=== PATIENT | male | born 1995 | race Caucasian/White ===

== ENCOUNTER → 2023-08-06 | Outpatient (CLI) | payer BC ==
[2023-08-06 12:38] LABS: Basophils # (A) 0.03 X 10*3/uL (0.00-0.10); Basophils % (A) 0.8 %; Eosinophils # (A) 0.09 X 10*3/uL (0.04-0.35); Eosinophils % (A) 2.3 %; HCT 48.3 % (39.6-50.0); HGB 15.7 g/dL (13.0-17.0); Lymphocytes # (A) 0.86 X 10*3/uL (0.90-5.00); Lymphocytes % (A) 22.2 %; MCH 26.1 pg (27.0-32.0); MCHC 32.5 g/dL (32.0-37.0); MCV 80.4 FL (80.0-97.0); Mean Platelet Volume 11.7 FL (9.5-12.2); Monocytes # (A) 0.61 X 10*3/uL (0.20-1.00); Monocytes % (A) 15.8 %; NRBC Per 100 WBC 0 X 10*3/uL (0.00-0.01); Neutrophils # (A) 2.26 X 10*3/uL (1.80-7.70); Neutrophils % (A) 58.4 %; Platelet Count 194 X 10*3/uL (140-440); RBC 6.01 X 10*6/uL (4.40-5.60); RDW 14.2 % (11.5-14.5); WBC 3.87 X 10*3/uL (4.50-10.00)
[2023-08-06 13:18] LABS: % Iron Saturation 13.83 (15.00-50.00); BUN/Creat Ratio 16.27 Ratio (12.00-20.00); Blood Urea Nitrogen 17.9 mg/dL (9.0-27.0); Chloride 103 mmol/L (96-109); Glucose 95 mg/dL (70-110); Iron 74 UG/DL (65-175); Potassium 4.2 mmol/L (3.5-5.5); Sodium 139 mmol/L (135-145); Total Iron Binding Capacity 535 UG/DL (228-460)
[2023-08-06 13:19] LABS: ALT 24 U/L (10-49); AST 16 U/L (14-35); Albumin 4.5 g/dL (3.8-4.9); Albumin/Globulin Ratio 2.05 Ratio (1.60-3.17); Alkaline Phosphatase 57 U/L (41-126); Calcium 9.5 mg/dL (8.7-10.3); Carbon Dioxide 27.1 mmol/L (21.6-31.8); Ferritin 15.6 ng/mL (22.0-322.0); Globulin 2.2 g/dL (1.6-3.3); Prostate Specific Antigen 0.42 ng/mL (0.000-2.500); T4, Free (Free Thyroxine) 1.11 ng/dL (0.80-1.80); Total Bilirubin 0.7 mg/dL (0.3-1.2); Total Protein 6.7 g/dL (6.2-8.2)
[2023-08-08 04:52] LABS: EBV - EA (IgG) <5.0 U/mL (<9.0); EBV - VCA IgM <10.0 U/mL (<36.0)
[2023-08-08 05:32] LABS: Mycoplasma IgG Antibody (EIA) 4.31 INDEX (<=0.90); Mycoplasma IgM Antibody 1.38 INDEX (<=0.90)
== END | disposition home or self-care (01) ==
LOC: LABWHC1 09:37
PROVIDERS: ATTEND Family Medicine
DX: G47.19 Other hypersomnia (principal); R79.89 Other specified abnormal findings of blood chemistry; R53.83 Other fatigue
CPT/HCPCS: 36415; 80053; 82306; 82607; 82672; 82728; 82746; 83036; 83540; 83550; 84144; 84153; 84403; 84439; 84443; 84481; 85025; 86038; 86644; 86645; 86663; 86665; 86738; 86800